=== PATIENT | female | born 1995 | race Caucasian/White ===

== ENCOUNTER 2020-04-17 21:51 | Emergency (ER) | payer SELFPAY ==
[~2020-04-17] VITALS: Ht 149.9 cm; Wt 56.7 kg
--- NOTE | 2020-04-17 22:13 | Emergency Room Report ---
History of Present Illness General Chief Complaint: Substance Abuse Source: Patient Present Illness HPI This a 25-year-old female with history of substance abuse with heroin and other drugs. She said she been in numerous rehab in the past. She is literally just got out of rehab today. She was using heroin today and said that she passed out when she used Barbi. Her friend called 911. EMS gave her Narcan which woke her up. She had vomiting initially but now no longer having vomiting. She does complain of generalized body pain. Is been ongoing for several weeks. She said she had work-up was negative. Covid testing last week was negative. She is not suicidal homicidal. She states she overdosed many times in the past. She actually have Narcan in her purse. Allergies: Coded Allergies: LAMOTRIGINE (Verified Allergy, Unknown, 04/17/20) Uncoded Allergies: SULFA (Allergy, Unknown, 04/17/20) COVID-19 Screening Contact w/high risk pt: No Experienced COVID-19 symptoms?: No COVID-[address] ADVOCATE: No Patient History Past Medical History: see triage record, old chart reviewed Past Surgical History: none Pertinent Family History: none Social History: Reports: drug use Last Menstrual Period: 04/16/20 Now: No : 0 Para: 0 Immunizations: other Reviewed Nursing Documentation: PMH: Agreed; PSxH: Agreed Nursing Documentation-PMH Hx Asthma: Yes Review of Systems Eye: Denies: eye pain, blurred vision ENT: Denies: ear pain, nose congestion, throat swelling Respiratory: Denies: cough, shortness of breath Cardiovascular: Denies: chest pain, palpitations Gastrointestinal: Denies: abdominal pain, diarrhea, nausea, vomiting Musculoskeletal: Denies: back pain, joint pain Skin: Denies: rash Neurological: Denies: headache, numbness Endocrine: Denies: increased thirst, increased urine Hematologic/Lymphatic: Denies: easy bruising All Other Systems: negative except mentioned in HPI Physical Exam Vital Signs Date Time Temp Pulse Resp B/P (MAP) Pulse Ox O2 Delivery O2 Flow Rate FiO2 04/17/20 21:48 98.2 110 22 140/73 (95) 100 Room Air Vitals with tachycardia Sp02 EP Interpretation: reviewed, normal General Appearance: well appearing, no apparent distress, alert Head: normocephalic, atraumatic Eyes: bilateral eye PERRL, bilateral eye EOMI ENT: hearing grossly normal, normal pharynx Neck: full range of motion, supple, no meningismus Respiratory: chest non-tender, lungs clear, normal breath sounds Cardiovascular #1: regular rate, rhythm, no murmur Gastrointestinal: normal bowel sounds, non tender, no mass, no organomegaly, no bruit, non-distended Musculoskeletal: back normal, normal range of motion, gait/station normal Psychiatric: mood/affect normal Medical Decision Making Diagnostic Impression: Primary Impression: Accidental heroin overdose Qualified Codes: T40.1X1A - Poisoning by heroin, accidental (unintentional), initial encounter ER Course Patient presents with accidental overdose on heroin. She is amiably stable. No suicidal thoughts homicidal thought. She already has Narcan. She has been in rehab numerous times. Will observe for about an hour or so to make sure once Narcan wore off she does become somnolent again. Will discharge home afterward. This patient is a chronic risk of self injury due to poor impulse control, limited coping skills, and judgment intermittently impaired by intoxication. I believe that the available clinical evidence to suggest that these characteristics derived primarily from personality disorder and are likely very stable over time. Hospitalization would likely attenuate risk of self-harm only during fdc period, without lasting risk reduction. Serious self-harm , while possible, would likely be inadvertent, and because of impulsivity, and foreseeable. For these reasons, I do not believe hospitalization would provide meaningful reduction in risk of self-harm. Last Vital Signs Date Time Temp Pulse Resp B/P (MAP) Pulse Ox O2 Delivery O2 Flow Rate FiO2 04/17/20 21:48 98.2 110 22 140/73 (95) 100 Room Air Status: improved Disposition: HOME, SELF-CARE Condition: Stable Additional Instructions: Abstain from drugs. Follow-up with rehab. Follow-up with your doctor in 7 days. Return if worse. Tariq Irby MD Apr 17, 2020 22:13
[2020-04-17 22:50] VITALS: BP 136/80
[2020-04-17 23:00] VITALS: BP 136/80
== END 2020-04-17 23:00 | disposition home or self-care (01) ==
LOC: EDSEX 21:51 → EDBD 21:51 → EMR 22:28
DX: T40.1X1A Poisoning by heroin, accidental (unintentional), initial encounter (principal); R52 Pain, unspecified; Z88.2 Allergy status to sulfonamides; Z88.8 Allergy status to other drugs, medicaments and biological substances
CPT/HCPCS: 99282